=== PATIENT | female | born 1950 | race Caucasian/White ===

== ENCOUNTER → 2017-08-09 | Outpatient (CLI) | payer MEDICARE, BC ==
[~2017-08-09] MED LIST: CEPH-460 PO; OXYB5TAB8 PO; PRED20 PO
--- NOTE | 2017-08-09 10:40 | RADRPT ---
EXAM DATE/TIME: 08/09/2017 10:19 [place] COMPARISON: No previous studies available for comparison. INDICATIONS : Dysphagia for one month FLUORO TIME: 2.4 minutes IMAGE COUNT: 1 CONTRAST: Dose as prescribed by speech pathologist. MEDICAL HISTORY : ALS SURGICAL HISTORY : None. ENCOUNTER: Initial ACUITY: 1 month PAIN SCORE: Non-responsive. LOCATION: Bilateral esophagus FINDINGS: A modified barium swallow was performed with speech pathology. Patient was given a variety of liquids to swallow. For a full detailed report, see report by the speech pathologist. CONCLUSION: Negative for aspiration Fernandez Hu MD FACR on August 09, 2017 at 10:37 Board Certified Radiologist. This report was verified electronically.
== END ==
LOC: HRAD 10:02
PROVIDERS: ATTEND Psychiatry & Neurology Neurology
DX: R13.10 Dysphagia, unspecified (principal)
CPT/HCPCS: 74230; 92611; G8996; G8997; G8998